=== PATIENT | female | born 1960 | race Two or more races ===

== ENCOUNTER 2016-11-08 07:21 | Day surgery (SDC) | payer OTHER ==
[~2016-11-08] VITALS: Ht 165.1 cm; Wt 77.1 kg
[2016-11-08] VITALS (10 sets, daily range): BP systolic 116–126; BP diastolic 56–81
--- NOTE | 2016-11-08 06:16 | Anethesia Preoperative Eval ---
Anesthesia Pre-op PMH/ROS General Date of Evaluation: Nov 08, 2016 Time of Evaluation: 06:13 Anesthesiologist: lynn ASA Score: ASA 2 Mallampati Score Class I : Soft palate, uvula, fauces, pillars visible Class II: Soft palate, uvula, fauces visible Class III: Soft palate, base of uvula visible Class IV: Only hard plate visible Mallampati Classification: Class II Surgeon: edmar Diagnosis: abd pain Surgical Procedure: egd Social History: current smoker Family History: no anesthesia problems Allergies: Coded Allergies: No Known Allergies (Unverified , 11/07/16) Medications: see eMAR Past Medical History Gastrointestinal/Genitourinary: Reports: GERD Neurologic/Psychiatric: Reports: depression/anxiety Musculoskeletal/Integumentary: Reports: OA PSxH Narrative: bilateral hand sx Anesthesia Pre-op Phys. Exam Physician Exam Constitutional: NAD Neurologic: CN 2-12 intact Cardiovascular: RRR Respiratory: CTA Gastrointestinal: S/NT/ND Airway Exam Mallampati Score: Class II MO: full Neck: supple TMD: 2fb ROM: full Teeth: intact Anesthesia Pre-op A/P Risk Assessment & Plan Assessment: abd pain Plan: egd Status Change Before Surgery: No Pre-Antibiotics Drug: GAEL Capone Nov 08, 2016 06:16
[~2016-11-08 07:21] MED LIST: LR 1000ml 1,000 ML IVLG SCH; PROTONIX20 MG ORAL; XANAX0.25 MG ORAL
--- NOTE | 2016-11-08 07:49 | Short Stay Surgery H&P ---
History of Present Illness History of Present Illness Chief Complaint Abdominal pains, GERDs. DOMENIC Mcdermott is a 56 year old female who was admitted on for Abdominal Pain and GERDs. Patient History Allergies: Coded Allergies: No Known Allergies (Unverified , 11/07/16) PAST MEDICAL HISTORY: Past Surgeries: Social History: Medication History Scheduled Alprazolam* (Xanax*), 0.25 MG ORAL NEEDED, (Reported) Pantoprazole Sodium (Protonix), 20 MG ORAL BID, (Reported) Review of Systems Respiratory: Reports: no symptoms Skeletal: Reports: no symptoms Gastrointestinal: Reports: gastro esophageal reflux disease Genitourinary: Reports: no symptoms Neurologic: Reports: no symptoms Endocrine: Reports: no symptoms Hematologic: Reports: no symptoms Physical Exam Vital Signs Last Vital Signs Date Time Temp Pulse Resp B/P Pulse Ox O2 Delivery O2 Flow Rate FiO2 11/08/16 07:46 97.5 52 18 125/81 100 Room Air Skin: normal HENT: normal Heart: normal Lungs: normal Abdomen: normal Extremities: normal Genitourinary: normal Plan Plan of Care Upper GI endoscopy and biopsy. Preop Interventions None. Summary of Findings See the reports. Final Diagnosis: Attestation Are the patient's medical conditions optimized for surgery? Attestation Response: yes TELLO SCHRADER Nov 08, 2016 07:49
--- NOTE | 2016-11-08 07:50 | Pre-Procedure Note/Attestation ---
Pre-Procedure Note/Attestation Complete Prior to Procedure Planned Procedure: left Procedure Narrative: Endoscopic examination of the upper GI tract. Indications for Procedure Pre-Operative Diagnosis: R/O esophagitis/gastritis and peptic ulcer. Attestation I attest that I discussed the nature of the procedure; its benefits; risks and complications; and alternatives (and the risks and benefits of such alternatives ), prior to the procedure, with the patient (or the patient's legal distribution sales representative). I attest that, if there was a reasonable possibility of needing a blood transfusion, the patient (or the patient's legal distribution sales representative) was given the [place] Department of Health Services standardized written summary, pursuant to the [employer] Blood Safety Act ([place] Health and Safety Code # 1645, as amended). I attest that I re-evaluated the patient just prior to the surgery and that there has been no change in the patient's H&P, except as documented below: RACIEL,SAID Nov 08, 2016 07:50
[2016-11-08] MEDS ORDERED: Lidocaine 1% MPF 10mg/ml 5ml ONE (08:00)
[2016-11-08] MEDS ORDERED: LR 1000ml ONE (08:00)
[2016-11-08] MEDS ORDERED: Propofol 10mg/ml 20ml IV ONE (08:00)
[2016-11-08] MEDS ORDERED: LR 1000ml 1,000 ML IVLG SCH (08:08)
[2016-11-08] MEDS ORDERED: Atropine Inj 1mg/10ml Syr IV PRN (08:15)
[2016-11-08] MEDS ORDERED: Hydromorphone 0.5mg/0.5ml inj IVP PRN (08:15)
[2016-11-08] MEDS ORDERED: DiphenhydrAMINE 50mg/ml Inj IVP PRN (08:15)
[2016-11-08] MEDS ORDERED: Midazolam 2mg/2ml Inj IVP PRN (08:15)
--- NOTE | 2016-11-08 08:24 | Endoscopy Procedure Note ---
Endoscopy Procedure Note Indication for Procedure: Abdominal pains/dysphagia/Gerds. Procedures Performed: EGD - Small Hiatal Hernia. Mild/moderate inflammatory process in antrum consistent with gastritis/antritis. Bilpsy was pbtained from the antrum. Specimen: yes Pt Tolerated Procedure Well: Yes Estimated Blood Loss: none Anesthesiologist: Dr. Harding Anesthesia: moderate sedation Medication Given: see anesthesia record Implant(s) used?: No 50 yrs or older w/o bx or poly: Not Applicable 10yrs. F/U not recommended: Not Applicable If not recommended, why?: Med reason:<3 yrs.: TELLO SCHRADER Nov 08, 2016 08:24
--- NOTE | 2016-11-08 08:25 | Discharge Instructions ---
Discharge Instructions Discharge Instructions Follow up with: Make appointment ot see the coctor after two weeks. For Congestive Heart Failure Reminder Report to your physician any weight gain of 5 pounds or more in one week. RACIEL,TELLO Nov 08, 2016 08:25
--- NOTE | 2016-11-08 08:40 | Immediate Post-Op Evaluation ---
Immediate Post-Op Evalulation Immediate Post-Op Evalulation Procedure: egd Date of Evaluation: Nov 08, 2016 IV Fluids: lr 100ml Blood Products: none Estimated Blood Loss: negligible Blood Pressure Systolic: 121 Blood Pressure Diastolic: 52 Pulse Rate: 53 Respiratory Rate: 18 O2 Sat by Pulse Oximetry: 100 Temperature (Fahrenheit): 97.7 Pain Score (1-10): 0 Nausea: No Vomiting: No Complications none Patient Status: patent Hydration Status: adequate Drug: GAEL Capone Nov 08, 2016 08:40
--- NOTE | 2016-11-08 13:01 | Operative Note - Dictated ---
DATE OF OPERATION: 11/08/2016 SURGEON: Phyllis Ascencio M.D. PROCEDURE: Esophagogastroduodenoscopy with biopsy. PREOPERATIVE DIAGNOSES: 1. Abdominal pain. 2. History of dysphagia. 3. Heartburn. POSTOPERATIVE DIAGNOSES: 1. Small hiatal hernia. 2. Mild/moderate inflammatory process in the antrum consistent with antritis. Biopsy was obtained from the antrum. MEDICATION USED: Per Dr. Harding. ANESTHESIOLOGIST: Dr. Harding at this time. INSTRUMENT: GIF Olympus upper gastrointestinal video endoscope. DESCRIPTION OF PROCEDURE: The patient after arriving in the endoscopy unit, was told about risks and benefits of the procedure, which she accepted and signed informed consent. She was then put on the left lateral decubitus position and after adequate IV sedation, the scope was gently passed through the cricopharyngeal area, was lodged into the upper esophagus, and gradually advanced towards gastroesophageal junction. The entire length of the esophagus looked normal. No evidence of varices, inflammatory process, ulceration, etc. was found. GE junction also looked normal. No Lopez's however there was a small hiatal hernia noted. Scope was described this time was guided into the stomach. Gastric cavity was distended with insufflation of air. Basically, the areas of the fundus and the body and the antrum of the stomach was examined, which looked normal except areas of patchy erythema in the antrum and prepyloric area, consistent with mild/moderate gastritis/antritis. There was no ulcers, tumors, bleeding site etc. At this point, couple of biopsies from the antrum was obtained. Subsequently, scope was passed through the pylorus. First and second portion of duodenum were found to be completely normal. Finally, the scope was pulled out into the stomach. A retroflexion maneuver was applied and the area of the fundus of the stomach was examined clearly which did not reveal any abnormality. At this time, the scope was pulled out. The procedure was terminated. The patient tolerated the procedure well and left the endoscopy room in a good condition. Phyllis Ascencio M.D. DR: JOSEPH JOB#: [id number] CC:
--- NOTE | 2016-11-08 15:46 | 48 Hour Post Anesthesia Eval ---
Post Anesthesia Evaluation Procedure: egd Date of Evaluation: Nov 08, 2016 Time of Evaluation: 08:50 Blood Pressure Systolic: 125 0: 60 Pulse Rate: 57 Respiratory Rate: 18 Temperature (Fahrenheit): 97.7 O2 Sat by Pulse Oximetry: 100 Airway: patent Nausea: No Vomiting: No Pain Intensity: 0 Hydration Status: adequate Cardiopulmonary Status: stable Mental Status/LOC: patient returned to baseline Post-Anesthesia Complications: none Follow-up care needed: N/A GAEL POOL Nov 08, 2016 15:46
--- NOTE | 2016-11-08 16:01 | Pre-op HX & Phy Repo 2 SIG ---
DATE OF ADMISSION: 11/08/2016 HISTORY OF PRESENT ILLNESS: The patient is a 56-year-old female, who is being seen prior to undergoing the procedure of upper GI endoscopy for which she has been scheduled to receive for evaluation of her gastrointestinal symptoms that she has suffered subsequent to her work injury. The applicant basically complained of experiencing pain over the epigastric area with heartburn and also having difficulty swallowing. The applicant also reports that she has been treated with multiple medications including the PPIs such as Protonix and antacids, which to some extent is helpful, but not completely. As I mentioned, the patient also does have difficulty swallowing mostly for the solid foods intermittently. She also reports that she cannot tolerate regular meals. The applicant has had history of taking multiple medications after her injury, but mostly in the family of nonsteroidal anti-inflammatory agents and strong analgesics subsequent two weeks taking these medications, she started to experience GI symptoms. These medications were such as ibuprofen, naproxen, and similar compounds. The applicant denied any history of gastrointestinal bleeding or constipation, diarrhea, etc. 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 During this process, she had multiple repetitive injuries going back to many years as I mentioned and she was under a lot of stress. She injured herself in the areas of the shoulder and the neck and different part of the body and as such she had been treated with medications as mentioned above. PAST MEDICAL HISTORY: Basically nonsignificant. She denies having high blood pressure or cholesterol, diabetes, etc. CURRENT MEDICATIONS: Ibuprofen, Protonix, and Xanax. ALLERGIES: Not significant. HABITS: The applicant denied drinking alcohol, but smoke cigarettes approximately four to five per day for 10 years. She does not use illicit drugs. REVIEW OF SYSTEMS: Review of systems basically history of present illness. PHYSICAL EXAMINATION: GENERAL: Reveals alert, oriented, very pleasant female, does not seem to be in any acute distress. She looks well developed and nourished, and answers the questions properly. VITAL SIGNS: Stable. HEENT: Within normal limits. No evidence of jaundice. Buccal cavity, tongue midline, well hydrated. No ulcers. NECK: Supple. No JVD, thyromegaly, or adenopathy. CHEST: Clear to auscultation and percussion. No rales or rhonchi. HEART: S1 and S2 normal. Regular rhythm. No gallops or murmurs. ABDOMEN: Soft, but it is slightly tender over the upper part of the abdomen, but there is no organomegaly or masses. No percussion tenderness. EXTREMITIES: No pretibial edema, cyanosis, or clubbing. CENTRAL NERVOUS SYSTEM: Within normal limits. SKIN AND LYMPHATICS: None significant. PREOPERATIVE IMPRESSION: 1. Gastroesophageal reflux disease mostly aggravated by side effects of medications of nonsteroidal anti-inflammatory agents used for the treatment of 04:12 injury. 2. History of dysphagia of uncertain etiology, possibly secondary to gastroesophageal reflux, rule out acid-induced esophagitis. RECOMMENDATION: The applicant seemed to be stable at this time to undergo the procedure of upper GI endoscopy for which she has been scheduled. She understands the risks and benefits and will sign the consent. Said Yudi Ascencio DR: LESLEE JOB#: [id number] CC:
== END 2016-11-08 09:50 | disposition home or self-care (01) ==
LOC: GAS 07:21
DX: K29.50 Unspecified chronic gastritis without bleeding (principal); B96.81 Helicobacter pylori [H. pylori] as the cause of diseases classified elsewhere; K44.9 Diaphragmatic hernia without obstruction or gangrene; K21.9 Gastro-esophageal reflux disease without esophagitis; F17.210 Nicotine dependence, cigarettes, uncomplicated; M19.90 Unspecified osteoarthritis, unspecified site; F32.9 Major depressive disorder, single episode, unspecified; F41.9 Anxiety disorder, unspecified
CPT/HCPCS: 43239; J2704; J7120; 94003; 94150